=== PATIENT | male | born 1950 | race Caucasian/White ===

== ENCOUNTER → 2018-02-18 13:42 | Outpatient (CLI) | payer BC, MEDICARE, SELFPAY ==
--- NOTE | 2018-02-18 13:45 | CT_ITS ---
CT lung screening EXAM: CT LUNG LOW DOSE WO CONTRAST COMPARISON: None HISTORY: 67-year-old male with 30 pack-year smoking history quit 8 years ago ITS.REASON: HX TOBACCO USE ORDERING PHYSICIAN: Parviz Stratton MD PATIENT AGE: 67 years TECHNIQUE: The exam was performed on a GE Light Speed [address] scanner using 2.90 mGy CTDI. A low dose helical CT CHEST was performed on a multi-detector scanner. All CT scans at the facility use one or more dose reduction, viz: automated exposure control; ma/kV adjustment per patient size (including targeted exams where dose is matched to indication; i.e. head); or iterative reconstruction technique. The LDCT was performed in a facility that meets the criteria for the screening program. Data regarding this exam was submitted to [employer] which is an approved registry. The order for this exam indicates that it came as a result of a lung cancer screening counseling shard decision-making visit that included all the elements required of such a visit including smoking cessation. The radiologist interpreting this exam meets the CMS criteria for the LDCT lung cancer screening program. The exam is reported using the Lung-RADS classification scale and reported to the ACR registry. NOTE: This study was performed for the specific purposes of lung cancer screening and is not an alternative to diagnostic chest CT. RADIATION DOSE: CTDI vol(CT dose Index-volume) = 2.90mG DLP (Dose Length Product) = 121.68 mGcm FINDINGS: Diffuse fibronodular changes are present in both upper lobes right more extensive than left. Centrilobular emphysematous changes are present along with hyperinflation and attenuation of the peripheral pulmonary vessels. There is an 8 x 5 cm bulla in the left upper lobe medially with smaller bulla adjacent to this area. Calcified granuloma is present in the left upper lobe There are nodular densities in both lung apices probably related to postinflammatory fibrotic changes. There is however a 9 mm nodular opacity in the right apex medially and an 8 mm nodular density in the left apex posteriorly. Subpleural nodular opacities are present in the right upper lobe laterally as well measuring up to 11 mm probably due to postinflammatory chronic change. Short-term follow-up is in order. Scattered small mediastinal nodes. Bilateral gynecomastia. There are degenerative changes in the thoracic spine with a Schmorl's node at T7 and T9. IMPRESSION: 1. Lung RADS Category: 4 a, suspicious 2. Other findings: Centrilobular emphysema, COPD, left upper lobe bulla RECOMMENDATIONS: [address] chest without and with contrast
== END ==
PROVIDERS: Family Provider Family Medicine; PCP Family Medicine; Visit Provider Family Medicine
DX: Z87.891 Personal history of nicotine dependence (principal); Z12.2 Encounter for screening for malignant neoplasm of respiratory organs

== ENCOUNTER → 2018-05-25 06:56 | Outpatient (CLI) | payer BC, MEDICARE, SELFPAY ==
[2018-05-25 08:30] LABS: Alanine Aminotransferase 28 U/L (12-78); Albumin Level 3.8 gm/dL (3.4-5.0); Albumin/Globulin Ratio 1.2 (1.1-1.8); Alkaline Phosphatase 99 U/L (46-116); Anion Gap 13.5 mEq/L (5-15); Aspartate Amino Transferase 16 U/L (15-37); Bilirubin,Total 0.4 mg/dL (0.2-1.0); Blood Urea Nitrogen 17 mg/dL (7-18); Calcium 8.9 mg/dL (8.5-10.1); Carbon Dioxide 28 mmol/L (21.0-32.0); Chloride 107 mmol/L (98-107); Chol/HDL Ratio 3.4 (1-3.5); Cholesterol 163 mg/dL (140-200); Creatinine,Serum 1.16 mg/dL (0.70-1.30); Estimated Glomerular Filt Rate 62 ml/min (>60); GFR (African American) 76 ML/MIN (>60); Globulin 3.2 gm/dl (1.3-3.2); Glucose 97 mg/dL (74-106); HDL Cholesterol 48 mg/dL (27-67); LDL Cholesterol 97 mg/dL (0-130); Potassium 4.5 mmoL/L (3.5-5.1); Sodium 144 mmol/L (136-145); Thyroid Stimulating Hormone 1.81 uIU/ml (0.358-3.740); Triglycerides 89 mg/dL (30-200); VLDL Cholesterol 18 mg/dL (0-40)
[2018-05-26 11:23] LABS: Microalbumin, Urine 3.8 ug/mL (Not Estab.)
== END ==
PROVIDERS: Visit Provider Family Medicine
DX: I10 Essential (primary) hypertension (principal)
CPT/HCPCS: 36415; 80053; 80061; 82043; 82570; 84443

== ENCOUNTER → 2018-05-27 12:42 | Outpatient (CLI) | payer BC, MEDICARE, SELFPAY ==
--- NOTE | 2018-05-27 12:48 | CT_ITS ---
CT chest wo/w con HISTORY: Tobacco use, emphysema, COPD, follow-up pulmonary nodules and subpleural lesions. ITS.REASON: ABNORMAL CT SCREENING ORDERING PHYSICIAN: Parviz Stratton MD PATIENT AGE: 68 years COMPARISON: 02/18/2018 Technique: Axial images obtained without and with contrast with sagittal and coronal reformats. All CT scans at the facility use one or more dose reduction, viz: automated exposure control, ma/kV adjustment per patient size (including targeted exams where dose is matched to indication, i.e. head), or iterative reconstruction technique. FINDINGS: There are scattered small nodes within the mediastinum measuring up to 1.5 x 1 cm in the precarinal region on the left. Small hilar lymph nodes are also present. No mediastinal or hilar mass apparent. Normal heart size. No evidence of pericardial effusion. Minimal coronary artery calcification Pleural parenchymal opacities are present in both apices somewhat more extensive on the right. These are not significantly changed. There is centrilobular emphysema with bilateral apical bulla greater on the left. The previously described right apical nodule does not appear significantly changed and may be related to the pulmonary fibrotic changes in the apices. There is diffuse bronchial thickening. No central obstructing lesions are evident. Subpleural nodular opacities once again noted unchanged. Previously noted 8 mm nodule in the left apex unchanged. Other smaller nodules are present as well unchanged Upper abdominal images show 2 isodensity is in the right hepatic lobe the largest at 11 mm and may be due to hepatic cyst. There is an old fracture left ninth rib laterally. IMPRESSION: 1. Centrilobular emphysema with COPD. 2. Scattered fibrotic changes with scattered apical and subpleural opacities which may be related to pulmonary fibrotic changes associated with some small mediastinal and hilar lymph nodes not significant changed. Suggest 6 month follow-up which can be performed without contrast.
== END ==
PROVIDERS: Family Provider Family Medicine; PCP Family Medicine; Visit Provider Family Medicine
DX: R93.8 Abnormal findings on diagnostic imaging of other specified body structures (principal)
CPT/HCPCS: 71270; Q9967